=== PATIENT | female | born 1970 | race American Indian/Alaskan Native ===

== ENCOUNTER 2016-12-18 07:23 | Emergency (ER) | payer OTHER ==
[2016-12-18 07:26] VITALS: BMI 27.3
[2016-12-18 07:41] VITALS: RESP 20
[2016-12-18] MEDS ORDERED: HYDROmorphone 1 mg/ml ISec IM STA (08:16)
[2016-12-18] MEDS ORDERED: HYDROmorphone 1 mg/ml ISec ONE (08:31)
--- NOTE | 2016-12-18 09:08 | RAD ---
PROCEDURE: Radiographs of the Lumbar Spine. HISTORY: pain COMPARISON: None available. FINDINGS: BONES: Mild curvature of the lumbar spine convex to the right. Alignment appears otherwise satisfactory. Degenerative changes including tiny osteophyte formation. Facet hypertrophy. No listhesis. No acute displaced fracture identified. DISC SPACES: Unremarkable. OTHER FINDINGS: Moderate constipation. IMPRESSION: Mild curvature of the lumbar spine convex to the right. Degenerative changes.
--- NOTE | 2016-12-18 09:44 | C.PDOC ---
History Of Present Illness 45 yo female c/o left lower back pain radiating down the leg since yesterday. No h/o back pain. No dysuria, urinary frequency, abdominal pain or pelvic pain. No change in sensation , urinary/bowel incontinence. No trauma. No fever. PT notes she was evaluated by [facility] yesterday, prescribed medication, she did not take it today, noting "they didnt help". Time Seen by Provider: 12/18/16 07:56 Chief Complaint (Nursing): Hip Pain History Per: Patient History/Exam Limitations: no limitations Onset/Duration Of Symptoms: Days (yesterday) Current Symptoms Are (Timing): Still Present Past Medical History Vital Signs: Last Vital Signs Temp 98.0 F 12/18/16 11:31 Pulse 81 12/18/16 11:31 Resp 20 12/18/16 11:31 BP 115/70 12/18/16 11:31 Pulse Ox 99 12/18/16 11:31 Family History: States: Unknown Family Hx - Social History Hx Alcohol Use: No Hx Substance Use: No - Immunization History Hx Tetanus Toxoid Vaccination: No Hx Influenza Vaccination: No Hx Pneumococcal Vaccination: No Review Of Systems Except As Marked, All Systems Reviewed And Found Negative. Musculoskeletal: Positive for: Back Pain Physical Exam - Physical Exam Appears: Well, Non-toxic, In Acute Distress (painful distress) Skin: Normal Color, Warm, Dry Head: Atraumatic, Normacephalic Eye(s): bilateral: Normal Inspection, EOMI Nose: Normal Oral Mucosa: Moist Neck: Normal, Normal ROM, Supple Chest: Symmetrical Cardiovascular: Rhythm Regular Respiratory: Normal Breath Sounds Gastrointestinal/Abdominal: Normal Exam, Soft, No Tenderness Back: No CVA Tenderness, No Vertebral Tenderness, Paraspinal Tenderness ((+) lower left paralumbar/buttock tenderness) Extremity: Normal ROM Extremity: Bilateral: Atraumatic, Normal Color And Temperature, Normal ROM Pulses: Left Dorsalis Pedis: Normal, Right Dorsalis Pedis: Normal Neurological/Psych: Oriented x3, Normal Speech, Normal Motor, Normal Sensation ED Course And Treatment O2 Sat by Pulse Oximetry: 100 - Other Rad l/s XR X-Ray: Interpreted by Me, Viewed By Me Interpretation: Accession No. : [id number]. Patient Name / ID : JAMAR LEE / [id number]. Exam Date : 12/18/2016 08:37:06 ( Approved ). Study Comment : Sex / Age : F / 45Y. Creator : May Armas MD. 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 Approver2 : Report Date : 12/18/2016 09:07:24. My Comment : . PROCEDURE: Radiographs of the Lumbar Spine. HISTORY: pain. COMPARISON: None available. FINDINGS: BONES: Mild curvature of the lumbar spine convex to the right. Alignment appears otherwise satisfactory. Degenerative changes including tiny osteophyte formation. Facet hypertrophy. No listhesis. No acute displaced fracture identified. DISC SPACES: Unremarkable. OTHER FINDINGS: Moderate constipation. IMPRESSION: Mild curvature of the lumbar spine convex to the right. Degenerative changes. - CT Scan/US Abd/pelvis Other Rad Studies (CT/US): Read By Radiologist, Radiology Report Reviewed CT/US Interpretation: PROCEDURE: CT Abdomen and Pelvis without Oral or IV contrast. HISTORY: left sided pain. COMPARISON: None available. TECHNIQUE: Contiguous axial images of the abdomen and pelvis. No oral or IV contrast administered. Coronal and Sagittal reformats generated and reviewed. Radiation dose: Total exam DLP = 359.18 mGy-cm. This CT exam was performed using one or more of the following dose reduction techniques: Automated exposure control, adjustment of the mA and/or kV according to patient size, and/or use of iterative reconstruction technique. FINDINGS: There is limited evaluation of the solid organs without the administration of IV contrast. LOWER THORAX: No visible consolidation, pleural effusion, or pneumothorax. LIVER: Unremarkable unenhanced appearance. GALLBLADDER AND BILE DUCTS: Cholelithiasis. PANCREAS: Unremarkable unenhanced appearance. SPLEEN: Unremarkable unenhanced appearance. ADRENALS: Unremarkable. KIDNEYS AND URETERS: No hydronephrosis or obstructing renal calculus. Nonobstructive 7 mm calcification, medial left midpole. BLADDER: The urinary bladder appears unremarkable. REPRODUCTIVE: Enlarged probable fibroid uterus. APPENDIX: No secondary signs of acute appendicitis. BOWEL: The stomach is nondistended. Lack of oral contrast limits evaluation for bowel pathology. The bowel loops appear within normal limits of caliber without evidence of intestinal obstruction. Moderate constipation. PERITONEUM: No significant free fluid. No definite free air. LYMPH NODES: No bulky lymphadenopathy identified. VASCULATURE: No aortic aneurysm. BONES: Mild degenerative changes. OTHER FINDINGS: Tiny fat containing umbilical hernia. IMPRESSION: Cholelithiasis. Nonobstructing 7 mm left mid pole renal calculus. No hydronephrosis. Enlarged probable fibroid uterus. Moderate constipation. Progress Note: Dilaudid IM and zofran ordered. On re-evaluation, Patient is resting comfortably, is no longer having back pain, no fever, no bony tenderness , no numbness, no weakness, or abdominal pain. Patient is ambulatory in the emergency department with no signs of discomfort. Patient was advised to follow up with their physician in 1-2 days. Disposition - Disposition Disposition: HOME/ ROUTINE Disposition Time: 09:46 Condition: STABLE Additional Instructions: Follow up with your primary medical doctor or clinic in 2-5 days for further evaluation. Take medications as prescribed. Return to the emergency department at any time if symptoms persist or worsen. Instructions: Sciatica (ED) Forms: [facility] (Irish) - Clinical Impression Clinical Impression: Lower back pain
[2016-12-18 10:20] LABS: RBC URINE 14 /hpf (0-3); URINE BILIRUBIN NEGATIVE (NEGATIVE); URINE BLOOD 2+ (NEGATIVE); URINE COLOR Yellow (YELLOW); URINE GLUCOSE (UA) NORMAL (Normal); URINE KETONE NEGATIVE (NEGATIVE); URINE LEUKOCYTE ESTERASE NEG Leu/uL (Negative); URINE PROTEIN NEGATIVE (NEGATIVE); URINE UROBILINOGEN NORMAL mg/dL (0.2-1.0); WBC URINE 2 /hpf (0-5)
--- NOTE | 2016-12-18 11:18 | CT ---
PROCEDURE: CT Abdomen and Pelvis without Oral or IV contrast. HISTORY: left sided pain COMPARISON: None available. TECHNIQUE: Contiguous axial images of the abdomen and pelvis. No oral or IV contrast administered. Coronal and Sagittal reformats generated and reviewed. Radiation dose: Total exam DLP = 359.18 mGy-cm. This CT exam was performed using one or more of the following dose reduction techniques: Automated exposure control, adjustment of the mA and/or kV according to patient size, and/or use of iterative reconstruction technique. FINDINGS: There is limited evaluation of the solid organs without the administration of IV contrast. LOWER THORAX: No visible consolidation, pleural effusion, or pneumothorax. LIVER: Unremarkable unenhanced appearance. GALLBLADDER AND BILE DUCTS: Cholelithiasis. PANCREAS: Unremarkable unenhanced appearance. SPLEEN: Unremarkable unenhanced appearance. ADRENALS: Unremarkable. KIDNEYS AND URETERS: No hydronephrosis or obstructing renal calculus. Nonobstructive 7 mm calcification, medial left midpole. BLADDER: The urinary bladder appears unremarkable. REPRODUCTIVE: Enlarged probable fibroid uterus. APPENDIX: No secondary signs of acute appendicitis. BOWEL: The stomach is nondistended. Lack of oral contrast limits evaluation for bowel pathology. The bowel loops appear within normal limits of caliber without evidence of intestinal obstruction. Moderate constipation. PERITONEUM: No significant free fluid. No definite free air. LYMPH NODES: No bulky lymphadenopathy identified. VASCULATURE: No aortic aneurysm. BONES: Mild degenerative changes. OTHER FINDINGS: Tiny fat containing umbilical hernia. IMPRESSION: Cholelithiasis. Nonobstructing 7 mm left mid pole renal calculus. No hydronephrosis. Enlarged probable fibroid uterus. Moderate constipation.
[2016-12-18 11:32] VITALS: BP 115/70; PULSE 81; TEMP 98
[2016-12-18 13:06] VITALS: O2SAT 100
== END 2016-12-18 11:50 | disposition home or self-care (01) ==
LOC: C.ER 07:23
DX: M54.5 Low back pain (principal)
CPT/HCPCS: 72100; 74176; 81001; 96372; 99284; J1170

== ENCOUNTER 2016-12-22 00:19 | Emergency (ER) | payer SELFPAY ==
[2016-12-22 00:19] VITALS: BMI 27.3
[2016-12-22 00:40] VITALS: TEMP 98.8
[2016-12-22] MEDS ORDERED: Lidocaine 5% Patch TD STA (02:00)
[2016-12-22] MEDS ORDERED: Lidocaine 5% Patch TD ONE (02:14)
[2016-12-22 03:08] VITALS: BP 146/84; PULSE 74; RESP 18; O2SAT 99
--- NOTE | 2016-12-22 03:16 | C.PDOC ---
History Of Present Illness 45 y/o patient arrives to the ED with complaint of left lower back pain. Patient states she was evaluated for back pain at [facility] on 12/17/16, and was prescribed Valium and Percocet, which has has run out of. Patient was also evaluated for similar complaints at ER on 12/18/16, with negative workup, and discharged with diagnosis of sciatica. The patient denies fever, chills, nausea, vomiting, urinary or bowel incontinence, saddle anaesthesia, extremity weakness or numbness, or other associated symptoms. Time Seen by Provider: 12/22/16 01:54 Chief Complaint (Nursing): Back Pain History/Exam Limitations: no limitations Onset/Duration Of Symptoms: Days Current Symptoms Are (Timing): Still Present Quality Of Discomfort: "Pain" Previous Symptoms: Back Pain Associated Symptoms: denies: Incontinence, New Weakness, New Numbness Past Medical History Reviewed: Historical Data, Nursing Documentation, Vital Signs Vital Signs: Last Vital Signs Temp 98.8 F 12/22/16 00:36 Pulse 74 12/22/16 03:07 Resp 18 12/22/16 03:07 BP 146/84 12/22/16 03:07 Pulse Ox 99 12/23/16 09:37 Surgical History: No Surg Hx Family History: States: Unknown Family Hx - Social History Hx Alcohol Use: No Hx Substance Use: No - Immunization History Hx Tetanus Toxoid Vaccination: No Hx Influenza Vaccination: No Hx Pneumococcal Vaccination: No Review Of Systems Constitutional: Negative for: Fever, Chills Cardiovascular: Negative for: Light Headedness Respiratory: Negative for: Cough, Shortness of Breath Gastrointestinal: Negative for: Nausea, Vomiting, Abdominal Pain Genitourinary: Negative for: Dysuria Musculoskeletal: Positive for: Back Pain. Negative for: Neck Pain Neurological: Negative for: Weakness, Numbness Physical Exam - Physical Exam Appears: Non-toxic, No Acute Distress Skin: Normal Color, Warm Head: Atraumatic, Normacephalic Neck: Normal ROM, No Midline Cervical Tenderness, No Paracervical Tenderness, Supple Chest: Symmetrical Cardiovascular: Rhythm Regular, No Murmur Respiratory: Normal Breath Sounds, No Wheezing Gastrointestinal/Abdominal: Bowel Sounds, Soft, No Tenderness, No Guarding, No Rebound Back: Normal Inspection, No CVA Tenderness, No Vertebral Tenderness, No Paraspinal Tenderness, Other (left sciatic notch tender) Extremity: Normal ROM, Capillary Refill (<2sec.) Neurological/Psych: Oriented x3, Normal Speech, Normal Cognition, Normal Motor, Normal Sensation ED Course And Treatment O2 Sat by Pulse Oximetry: 99 (RA) Medical Decision Making Medical Decision Makin am pt reports feeling much better; will d/c with nsaids and flexeril, f/u clinic, recommend physical therapy. Disposition Counseled Patient/Family Regarding: Diagnosis, Need For Followup, Rx Given - Disposition Referrals: [facility] [Outside] Disposition: HOME/ ROUTINE Disposition Time: 03:13 Condition: IMPROVED Additional Instructions: Apply cold or warm compresses to painful area several times a day. Take medications as prescribed. Do not drive or operate machinery hen taking muscle relaxant. Follow up in medical clinic; recommend physical therapy. 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 - Scribe Statement The provider has reviewed the documentation as recorded by the Scribe (Jackie Espinosa)
== END 2016-12-22 03:29 | disposition home or self-care (01) ==
LOC: C.ER 00:19
DX: M54.32 Sciatica, left side (principal)
CPT/HCPCS: 96372; 99283; J1885